=== PATIENT | male | born 1955 | race Caucasian/White ===

== ENCOUNTER 2018-11-17 20:37 | Emergency (ER) | payer BC ==
[2018-11-17] MEDS ORDERED: Adacel (T-DAP) 0.5 ML SYRINGE ONE (21:11)
--- NOTE | 2018-11-17 21:21 | RAD ---
XR Forearm Lt 2 View STANDARD History: Dog bite Comparison: None. Findings: Dorsal edema and swelling of the forearm. No fracture or malalignment. No radiopaque foreig n object. Impression: Dorsal swelling of the forearm without fracture, malalignment, nor radiopaque foreign obj ect.
== END 2018-11-17 21:35 | disposition home or self-care (01) ==
LOC: ERS 20:37
DX: S51.852A Open bite of left forearm, initial encounter (principal); W54.0XXA Bitten by dog, initial encounter
CPT/HCPCS: 90471; 90715